=== PATIENT | male | born 1995 | race Caucasian/White ===

== ENCOUNTER 2018-11-26 09:33 | Inpatient (IN) ==
[2018-11-26] MEDS ORDERED: TUBERSOL ID ONE (13:12)
[2018-11-26] MEDS ORDERED: SENOKOT PO PRN (13:12)
[2018-11-26] MEDS ORDERED: D5W 1,000 ML IV PRN (13:12)
[2018-11-26] MEDS ORDERED: PHENOBARBITAL IV PRN (13:12)
[2018-11-26] MEDS ORDERED: BENTYL PO PRN (13:12)
[2018-11-26] MEDS ORDERED: ZOFRAN IV PRN (13:12)
[2018-11-26] MEDS ORDERED: SEROQUEL PO PRN (13:12)
[2018-11-26] MEDS ORDERED: ROBAXIN PO PRN (13:12)
[2018-11-26] MEDS ORDERED: DULCOLAX PR PRN (13:12)
[2018-11-26] MEDS ORDERED: NICODERM PATCH TD PRN (13:12)
[2018-11-26] MEDS ORDERED: IMODIUM PO PRN (13:12)
[2018-11-26] MEDS ORDERED: MAALOX PLUS LIQUID PO PRN (13:12)
[2018-11-26] MEDS ORDERED: SINEMET 25/100 PO PRN (13:12)
[2018-11-26] MEDS ORDERED: MOTRIN PO PRN (13:12)
[2018-11-26 13:44] LABS: HEMATOCRIT 40.1 % (42.0-52.0); HEMOGLOBIN 13.7 g/dL (14.0-18.0); MCHC 34.2 g/dL (33-37); MPV 10.1 FL (7.4-10.4); RBC 4.72 XMIL (4.7-6.1); RDW 13.4 % (11.5-14.5); WBC 10.25 X1000 (4.8-10.8)
[2018-11-26 14:01] LABS: URINE SOURCE VOIDED
[2018-11-26 14:15] LABS: AMYLASE 76 U/L (20-200); LIPASE 47 U/L (13-60)
[2018-11-26 14:21] LABS: INR 0.92; PROTIME 12.8 Seconds (11.0-16.0)
[2018-11-26] MEDS: SUBOXONE 2 MG/0.5 MG FILM SL SCH (14:21)
[2018-11-26] MEDS: ZOFRAN ODT PO PRN ×2 (14:22→21:53)
[2018-11-26] MEDS: ATARAX PO PRN ×2 (14:22→21:54)
[2018-11-26] MEDS: NICOTINE GUM BUCCAL PRN ×2 (14:22→21:53)
[2018-11-26 14:39] LABS: AGAP 8; ALBUMIN 3.7 g/dL (3.5-5.0); ALKALINE PHOSPHATASE 82 U/L (32-122); BUN 12 mg/dL (8-22); CALCIUM 8.5 mg/dL (8.8-10.2); CHLORIDE 103 mmol/L (98-107); COSMO 276; CREATININE 0.7 mg/dL (0.7-1.2); ESTIMATED GFR > 60; GLUCOSE 104 mg/dL (70-104); GOT 12 U/L (10-34); GPT 17 U/L (10-44); POTASSIUM 4.2 mmol/L (3.5-5.1); SODIUM 138 mmol/L (136-145); TCO2 27 mmol/L (25-35); TOTAL BILIRUBIN < 0.15 mg/dL (0.20-1.00)
[2018-11-26 14:40] LABS: BILIRUBIN URINE NEGATIVE (NEGATIVE); BLOOD URINE NEGATIVE (NEGATIVE); CLARITY CLEAR (CLEAR); COLOR YELLOW; GLUCOSE URINE NEGATIVE (NEGATIVE); KETONE URINE NEGATIVE (NEGATIVE); LEUKOCYTES URINE TRACE (NEGATIVE); NITRITE URINE NEGATIVE (NEGATIVE); PROTEIN URINE NEGATIVE (NEGATIVE); UROBILINOGEN URINE NORMAL
[2018-11-26 14:44] LABS: URINE BACTERIA 1+ /HFP; URINE CAST NONE SEEN /LPF; URINE CRYSTAL CA OXALATE PRESENT /HPF; URINE EPITHELIAL CELLS <10 /HPF (<10); URINE RBC <10 /HPF (<10); URINE YEAST NONE SEEN /HPF
[2018-11-26 14:52] LABS: UR AMPHETAMINES QUAL NONE DETECTED (NONE DETECT); UR BARBITUATES QUAL NONE DETECTED (NONE DETECT); UR BENZODIAZEPIN QUAL NONE DETECTED (NONE DETECT); UR CANNABINOIDS QUAL PRESUMPTIVE POSITIVE (NONE DETECT); UR COCAINE QUAL NONE DETECTED (NONE DETECT); UR METHADONE QUAL NONE DETECTED (NONE DETECT); UR METHAMPHETAMINE QUAL NONE DETECTED (NONE DETECT); UR OPIATES QUAL NONE DETECTED (NONE DETECT); UR OXYCODONE QUAL NONE DETECTED (NONE DETECT); UR PCP QUAL NONE DETECTED (NONE DETECT); UR PROPOXYPHENE QUAL NONE DETECTED (NONE DETECT); UR TCA QUAL NONE DETECTED (NONE DETECT)
[2018-11-26] MEDS: LIBRIUM PO PRN (21:53)
[2018-11-26] MEDS: TYLENOL PO PRN (21:53)
[2018-11-26] MEDS: DESYREL PO PRN (21:54)
--- NOTE | 2018-11-26 22:38 | HISTORY AND PHYSICAL ---
CHIEF COMPLAINT: Nausea and vomiting. HISTORY OF PRESENT ILLNESS: The patient is a 23-year-old male who notes that he has abused most substances. [facility] complaining of nausea, vomiting, abdominal pain and myalgias. the patient has been having withdrawal from it. He notes that he is sick of that life, sick of being sick every day and wants to get his life back under control. He does have a history of hepatitis C that is untreated secondary to that lifestyle. SOCIAL HISTORY: The patient is single, unemployed, lives at home in [place]. PAST MEDICAL HISTORY: Chronic hepatitis C, chronic anxiety and depression. MEDICATIONS: None. ALLERGIES: No known drug allergies. REVIEW OF SYSTEMS: CINA score is elevated at 26 secondary to nausea, vomiting, fidgeting, watery eyes, yawning, frequent sniffing. Complaining of abdominal cramping and muscle aches. Denies any true fevers or chills. Denies headaches, blurred vision or change in vision. Denies any focalized numbness, tingling or weakness in his extremities. Denies dysuria, frequency, urgency, hesitancy, constipation, melena or hematochezia. SUBSTANCE ABUSE HISTORY: He was in [place] in 2014 for poly substances. He was in [facility] in 2010 for opiates. He stayed 50 days, remained sober for a few months. He was in [facility] for 40 days in 2014 and remained sober for 2 years. He was in [place], [place] for 40 days and started using immediately upon discharge. He started drinking at age 10, has not drank in a while. He started marijuana at 10, has not used in a while. Started depressants at 13, has not used in 5 days. Started Adderall, has not used in a week. Started cocaine at 16, has not used in several years. He has tried hallucinogens as well as inhalants at 11. He started opiates at 10. Currently he is using pills and heroin, taking up to a half a gram of heroin a day for the last 2 years. He tried Spice once. He started smoking at age 7. Currently he continues to smoke a half pack. FAMILY HISTORY: Noncontributory. PHYSICAL EXAMINATION: VITAL SIGNS: Reviewed and stable. GENERAL: The patient is awake, alert, currently in no respiratory distress, obviously ill appearing. HEENT: Normocephalic. NECK: Supple. CARDIOVASCULAR: Regular rate. No murmurs. CHEST: Clear. ABDOMEN: Soft. EXTREMITIES: Moves all extremities. NEUROLOGIC: No focal changes. SKIN: Warm and dry. No rash. ASSESSMENT: 1. Nausea and vomiting. 2. Abdominal pain. 3. Myalgias. 4. Paresthesias. 5. Paroxysmal sweating. 6. Opiate abuse, withdrawal and stabilization. 7. Hepatitis C. PLAN: We will continue the patient in the hospital, continue counseling. Symptomatic medications. Place on Suboxone. Further orders as needed. cc: Erich Roper MD MTDD
[2018-11-27] MEDS: SUBOXONE 2 MG/0.5 MG FILM SL SCH ×2 (03:18→14:56)
[2018-11-27] MEDS: PROTONIX PO SCH (06:04)
[2018-11-27] MEDS: FOLIC ACID PO SCH (08:18)
[2018-11-27] MEDS: THERA M PLUS PO SCH (08:19)
[2018-11-27] MEDS: ZOFRAN ODT PO PRN ×2 (08:19→20:47)
[2018-11-27] MEDS: VITAMIN B-1 PO SCH (08:19)
[2018-11-27] MEDS: TYLENOL PO PRN ×2 (08:20→20:48)
[2018-11-27] MEDS: ATARAX PO PRN (08:20)
[2018-11-27] MEDS: NICOTINE GUM BUCCAL PRN ×2 (10:22→14:56)
--- NOTE | 2018-11-27 20:02 | PROGRESS NOTE ---
DATE: 11/27/2018 SUBJECTIVE: The patient notes that he still feels terrible, still having lots of muscle aches. He is unsure if he is on a high enough dose of Suboxone. He denies any fevers or chills. OBJECTIVE: Vital signs reviewed. The patient is awake, alert. He is in no distress. Vital signs stable.HEENT: Normocephalic. Neck supple. Cardiovascular: Regular rate. No murmurs. Chest clear, nonlabored. Abdomen soft. Extremities: Moves all extremities. ASSESSMENT: 1. Nausea and vomiting. 2. Abdominal pain. 3. Myalgias. 4. Paresthesias. 5. Paroxysmal sweating. 6. Opiate abuse, withdrawal and stabilization. PLAN: We will continue the patient in the hospital. Continue Suboxone at 4 mg. I discussed with him that we may need to increase it to 8. Will continue counseling. Hopefully home over the next 1 or 2 days. cc: Erich Roper MD
[2018-11-27] MEDS: DESYREL PO PRN (20:47)
[2018-11-27] MEDS: LIBRIUM PO PRN (20:48)
[2018-11-28] MEDS: SUBOXONE 2 MG/0.5 MG FILM SL SCH (02:40)
[2018-11-28] MEDS: PROTONIX PO SCH (08:34)
[2018-11-28] MEDS: THERA M PLUS PO SCH (08:34)
[2018-11-28] MEDS: FOLIC ACID PO SCH (08:34)
[2018-11-28] MEDS: ATARAX PO PRN (08:34)
[2018-11-28] MEDS: ZOFRAN ODT PO PRN (08:34)
[2018-11-28] MEDS: VITAMIN B-1 PO SCH (08:34)
[2018-11-28] MEDS ORDERED: SUBOXONE 8 MG/2 MG FILM SL SCH (09:15)
[2018-11-28 11:32] VITALS: BP 145/76
[2018-11-28] MEDS: LIBRIUM PO PRN (12:56)
--- NOTE | 2018-11-29 05:46 | DISCHARGE SUMMARY ---
ADMISSION DATE: 11/26/2018 DISCHARGE DATE: 11/28/2018 DISCHARGE DIAGNOSES: 1. Nausea vomiting, abdominal pain. 2. Myalgias. 3. Paresthesias. 4. Paroxysmal sweating. 5. Opiate abuse withdrawal and stabilization. 6. Chronic anxiety, depression. CONSULTATIONS: None. PROCEDURES: None. BRIEF HOSPITAL COURSE: Patient is a 23-year-old male who presented to [facility] secondary to nausea, vomiting, abdominal pain, myalgias. Notes he has been using abusing opiates. He has been in several treatment facilities in the past and each time he has gone home without any medication-assisted therapy, and each time he almost immediately relapsed. This time, the patient was admitted to the hospital. We began treating him with medication- assisted therapy, Suboxone. We also have performed counseling each day by myself. Continued education. Thankfully, he had uneventful hospital course. He did require 8 mg Suboxone to alleviate his withdrawal symptoms. DISPOSITION: Patient will be discharged home. Greater than 30 minutes was spent by myself in counseling and education. The patient will continue 8 mg Suboxone tablets twice daily. We will follow up outpatient with treatment facility of choice. Discussed patient he needs to avoid all persons, places, situations which he has been using and abusing in the past. He needs outpatient life counseling as well as drug counseling. TOTAL TIME: Greater than 30 minutes spent in total care. cc: Erich Roper MD
== END 2018-11-28 14:45 | disposition home or self-care (01) | DRG 897 ==
LOC: P.MEDSURG 12:53
PROVIDERS: ADMIT Family Medicine; ATTEND Family Medicine